=== PATIENT | male | born 1970 | race Caucasian/White ===

== ENCOUNTER 2017-05-09 18:57 | Inpatient (IN) | payer BC, OTHER ==
[~2017-05-09] VITALS: Ht 177.8 cm; Wt 87.1 kg
[~2017-05-09 18:57] MED LIST: BUDE10.2 INH; Gabapentin PO; HYDR-3895 PO; Metronidazole PO; TRAZ-144 PO; VARE1TAB21 PO
[2017-05-09 22:30] VITALS: BP 128/98
[2017-05-09] MEDS ORDERED: ACETAMINOPHEN 325 MG TABLET PO PRN (22:30)
[2017-05-09] MEDS ORDERED: ONDANSETRON ODT 4 MG TAB.RAPDIS SL PRN (22:30)
[2017-05-09] MEDS ORDERED: MAG HYDROX/AL HYDROX/SIMETH 30 ML LIQUID UDC PO PRN (22:30)
[2017-05-09] MEDS ORDERED: IBUPROFEN 600 MG TABLET PO PRN (22:30)
[2017-05-09] MEDS ORDERED: MIRALAX 17 GM POWD.PACK PO PRN (22:30)
[2017-05-09] MEDS ORDERED: DICYCLOMINE HCL 20 MG TABLET PO PRN (22:30)
[2017-05-09] MEDS ORDERED: MAGNESIUM HYDROXIDE 30 ML LIQUID UDC PO PRN (22:30)
[2017-05-09] MEDS ORDERED: BUPRENORPHINE HCL 2 MG TAB.SUBL SL PRN (22:30)
[2017-05-09] MEDS ORDERED: DOCUSATE SODIUM 250 MG CAPSULE PO PRN (22:30)
[2017-05-09] MEDS ORDERED: LOPERAMIDE HCL 2 MG CAPSULE PO PRN (22:30)
[2017-05-09] MEDS ORDERED: ONDANSETRON 4 MG/2 ML VIAL IM PRN (22:30)
[2017-05-09] MEDS ORDERED: IBUPROFEN 600 MG TABLET ONE (22:51)
[2017-05-09] MEDS ORDERED: LORAZEPAM 1 MG TABLET ONE (23:05)
[2017-05-09 23:13] LABS: *AMPHETAMINE, URINE NEGATIVE (NEGATIVE); *BARBITURATE, URINE NEGATIVE (NEGATIVE); *CANNABINOID, URINE NEGATIVE (NEGATIVE); *COCCAINE, URINE NEGATIVE (NEGATIVE); *OPIATE, URINE POSITIVE (NEGATIVE); *PHENCYCLIDINE SCREEN,URINE NEGATIVE (NEGATIVE)
[2017-05-09] MEDS ORDERED: LORAZEPAM 1 MG TABLET PO ONE (23:30)
[2017-05-10] VITALS: BP 133/87
[2017-05-10 04:00] VITALS: BP 137/80
[2017-05-10] MEDS: BUPRENORPHINE HCL 2 MG TAB.SUBL SL SCH ×4 (08:07→21:30)
[2017-05-10 08:16] VITALS: BP 137/88
[2017-05-10] MEDS ORDERED: TUBERCULIN,PURIF.PROT.DERIV. 5 TU/0.1 ML TEST ID ONE (09:00)
[2017-05-10] MEDS: METHOCARBAMOL 750 MG TABLET PO PRN (09:25)
[2017-05-10] MEDS: LORAZEPAM 1 MG TABLET PO PRN ×2 (09:25→14:33)
[2017-05-10] MEDS: CLONIDINE HCL 0.1 MG TABLET PO PRN (09:37)
[2017-05-10] MEDS ORDERED: INFLUENZA VACCINE 2017-2018 0.5 ML DISP.SYRIN IM ONE (10:00)
[2017-05-10] MEDS ORDERED: PNEUMOCOCCAL 23-VAL P-SAC VAC 0.5 ML VIAL IM ONE (10:00)
[2017-05-10] MEDS ORDERED: LORAZEPAM 2 MG/1 ML VIAL IM ONE (12:00)
[2017-05-10 12:45] VITALS: BP 119/74
[2017-05-10 12:59] LABS: ALANINE AMINOTRANSFERASE 22 U/L (16-63); ALKALINE PHOSPHATASE 107 U/L (50-136); ASPARTATE AMINOTRANSFERASE 29 U/L (15-37); BILIRUBIN,TOTAL 1.2 mg/dL (0.2-1.0); CARBON DIOXIDE 22 mmol/L (21-32); CHLORIDE 101 mmol/L (98-107); CREATININE 0.8 mg/dL (0.6-1.3); GLUCOSE 114 mg/dL (74-106); POTASSIUM 3.3 mmol/L (3.5-5.1); TOTAL PROTEIN, SERUM 8.4 g/dL (6.4-8.2); UREA NITROGEN, BLOOD 7 mg/dL (7-18)
[2017-05-10 13:00] LABS: BASOPHILS # (AUTO) 0.1 K/uL (0.0-8.0); BASOPHILS % (AUTO) 0.8 % (0.0-2.0); EOSINOPHILS # (AUTO) 0.1 K/uL (0.0-0.7); EOSINOPHILS % (AUTO) 0.6 % (0.0-7.0); HEMOGLOBIN 15.9 g/dL (12.5-16.3); LYMPHOCYTES # (AUTO) 1.4 K/uL (20.0-40.0); LYMPHOCYTES % (AUTO) 10.2 % (20.5-51.5); MEAN CORPUSCULAR HEMOGLOBIN 29.2 uug (23.8-33.4); MEAN CORPUSCULAR HGB CONC 35 g/dL (32.5-36.3); MEAN CORPUSCULAR VOLUME 84.3 fL (73.0-96.2); MONOCYTES # (AUTO) 0.7 K/uL (2.0-10.0); MONOCYTES % (AUTO) 5.6 % (0.0-11.0); NEUTROPHILS % (AUTO) 82.8 % (38.5-71.5); PLATELET COUNT (AUTO) 295 K/uL (152-348); RED BLOOD CELL COUNT(AUTO) 5.45 MIL/uL (4.06-5.63); WHITE BLOOD COUNT (AUTO) 13.3 K/uL (3.6-10.2)
[2017-05-10 13:03] LABS: ETHANOL < 3 MG/DL (0-0)
[2017-05-10] MEDS ORDERED: IV NS 1000 ML 1,000 ML IV PRN (13:15)
[2017-05-10] MEDS: GABAPENTIN 300 MG CAPSULE PO SCH ×2 (14:33→21:30)
[2017-05-10] MEDS ORDERED: POTASSIUM CHLORIDE 20 MEQ TAB.PRT.SR PO ONE (17:00)
[2017-05-10 17:04] VITALS: BP 122/74
[2017-05-10 20:00] VITALS: BP 109/68
[2017-05-10] MEDS: TRAZODONE 50 MG TABLET PO PRN (23:01)
[2017-05-11] MEDS: HYDROXYZINE PAMOATE 25 MG CAPSULE PO PRN ×2 (00:37→21:19)
[2017-05-11] MEDS: METHOCARBAMOL 750 MG TABLET PO PRN (00:38)
[2017-05-11] MEDS: CLONIDINE HCL 0.1 MG TABLET PO PRN ×2 (00:39→12:56)
[2017-05-11 08:00] VITALS: BP 138/88
[2017-05-11 08:06] LABS: HEPATITIS B SURFACE AG Negative (Negative)
[2017-05-11 08:19] LABS: BASOPHILS # (AUTO) 0.6 K/uL (0.0-8.0); BASOPHILS % (AUTO) 4.4 % (0.0-2.0); EOSINOPHILS # (AUTO) 0.2 K/uL (0.0-0.7); EOSINOPHILS % (AUTO) 1.4 % (0.0-7.0); HEMATOCRIT 51.8 % (40-50); HEMOGLOBIN 17.4 G/DL (14.0-18.0); LYMPHOCYTES # (AUTO) 3.4 K/UL (0.8-4.8); LYMPHOCYTES % (AUTO) 24.2 % (20.5-51.5); MEAN CORPUSCULAR HEMOGLOBIN 28.4 UUG (27.0-31.0); MEAN CORPUSCULAR HGB CONC 34 g/dL (32.0-37.0); MEAN CORPUSCULAR VOLUME 84.7 FL (82.0-92.0); MONOCYTES # (AUTO) 1.2 K/UL (0.1-1.30); MONOCYTES % (AUTO) 8.9 % (0.0-11.0); NEUTROPHILS # (AUTO) 8.5 K/UL (1.8-8.9); NEUTROPHILS % (AUTO) 61.1 % (38.5-71.5); PLATELET COUNT (AUTO) 325 K/UL (150-450); RED BLOOD CELL COUNT(AUTO) 6.12 MIL/UL (4.7-6.1); WHITE BLOOD COUNT (AUTO) 13.9 K/UL (4.0-11.2)
[2017-05-11 08:27] LABS: CREATININE 0.8 mg/dL (0.6-1.3); MAGNESIUM 2.3 mg/dL (1.8-2.4); POTASSIUM 3.5 mmol/L (3.5-5.1)
[2017-05-11] MEDS: BUPRENORPHINE HCL 2 MG TAB.SUBL SL SCH ×2 (08:32→14:25)
[2017-05-11] MEDS: GABAPENTIN 300 MG CAPSULE PO SCH (08:32)
[2017-05-11] MEDS ORDERED: INFLUENZA VACCINE 2017-2018 0.5 ML DISP.SYRIN IM ONE (10:00)
[2017-05-11] MEDS ORDERED: PNEUMOCOCCAL 23-VAL P-SAC VAC 0.5 ML VIAL IM ONE (10:00)
[2017-05-11 12:00] VITALS: BP 148/103
[2017-05-11] MEDS: GABAPENTIN 400 MG CAPSULE PO SCH ×2 (14:25→21:19)
[2017-05-11 16:00] VITALS: BP 130/77
[2017-05-11] MEDS: LOPERAMIDE HCL 2 MG CAPSULE PO PRN (18:59)
[2017-05-11 20:00] VITALS: BP 130/94
[2017-05-11] MEDS: CLONIDINE HCL 0.1 MG TABLET PO SCH (21:19)
[2017-05-11] MEDS: TRAZODONE 50 MG TABLET PO PRN (21:20)
[2017-05-11] MEDS: BACLOFEN 10 MG TABLET PO SCH (21:20)
[2017-05-12 08:00] VITALS: BP 133/90
[2017-05-12] MEDS: CLONIDINE HCL 0.1 MG TABLET PO SCH ×2 (08:52→21:22)
[2017-05-12] MEDS: GABAPENTIN 400 MG CAPSULE PO SCH ×2 (08:52→14:03)
[2017-05-12] MEDS: BACLOFEN 10 MG TABLET PO SCH ×2 (08:52→21:24)
[2017-05-12] MEDS ORDERED: BUPRENORPHINE HCL 2 MG TAB.SUBL SL SCH (09:00)
[2017-05-12 12:00] VITALS: BP 136/94
[2017-05-12] MEDS: BUPRENORPHINE HCL 2 MG TAB.SUBL SL SCH ×2 (14:06→21:24)
[2017-05-12 16:00] VITALS: BP 135/95
[2017-05-12] MEDS ORDERED: TRAZODONE 50 MG TABLET PO PRN (17:15)
[2017-05-12] MEDS: LOPERAMIDE HCL 2 MG CAPSULE PO PRN (19:39)
[2017-05-12 20:00] VITALS: BP 143/98
[2017-05-12] MEDS: GABAPENTIN 300 MG CAPSULE PO SCH (21:22)
[2017-05-12] MEDS: HYDROXYZINE PAMOATE 25 MG CAPSULE PO PRN (21:22)
[2017-05-12] MEDS: TRAZODONE 100 MG TABLET PO PRN (21:22)
[2017-05-13 05:00] VITALS: BP 129/81
[2017-05-13 08:00] VITALS: BP 138/92
[2017-05-13] MEDS: GABAPENTIN 300 MG CAPSULE PO SCH ×3 (08:24→21:49)
[2017-05-13] MEDS: BUPRENORPHINE HCL 2 MG TAB.SUBL SL SCH ×3 (08:24→21:49)
[2017-05-13] MEDS: BACLOFEN 10 MG TABLET PO SCH ×3 (08:24→21:49)
[2017-05-13 12:00] VITALS: BP 127/90
[2017-05-13 16:00] VITALS: BP 138/87
[2017-05-13 20:00] VITALS: BP 140/90
[2017-05-13] MEDS: PAROXETINE HCL 10 MG TABLET PO SCH (21:49)
[2017-05-13] MEDS: TRAZODONE 100 MG TABLET PO PRN (21:49)
[2017-05-13] MEDS: CLONIDINE HCL 0.1 MG TABLET PO SCH (21:50)
[2017-05-14 08:00] VITALS: BP 150/101
[2017-05-14] MEDS ORDERED: BUPRENORPHINE HCL 2 MG TAB.SUBL SL SCH (09:00)
[2017-05-14] MEDS: BACLOFEN 10 MG TABLET PO SCH ×3 (09:20→21:24)
[2017-05-14] MEDS: GABAPENTIN 300 MG CAPSULE PO SCH ×3 (09:21→21:24)
[2017-05-14 12:45] VITALS: BP 147/94
[2017-05-14 16:45] VITALS: BP 141/95
[2017-05-14 20:00] VITALS: BP 154/95
[2017-05-14] MEDS: PAROXETINE HCL 10 MG TABLET PO SCH (21:24)
[2017-05-14] MEDS: TRAZODONE 100 MG TABLET PO PRN (21:24)
[2017-05-14] MEDS: CLONIDINE HCL 0.1 MG TABLET PO PRN (21:25)
[2017-05-14] MEDS ORDERED: DICY20TA28 PO (21:58)
[2017-05-14] MEDS ORDERED: TRAZ-147 PO (21:58)
[2017-05-14] MEDS ORDERED: GABA-534 PO (21:58)
[2017-05-14] MEDS ORDERED: PARO10TA4 PO (21:58)
[2017-05-14] MEDS ORDERED: METH-406 PO (21:58)
[2017-05-14] MEDS ORDERED: HYDR-3895 PO (21:58)
[2017-05-14] MEDS ORDERED: IBUP-1955 PO (21:58)
[2017-05-14] MEDS ORDERED: CLON0.1T14 PO (21:58)
[2017-05-15 08:00] VITALS: BP 152/98
[2017-05-15 08:30] VITALS: BP 138/88
[2017-05-15] MEDS: GABAPENTIN 300 MG CAPSULE PO SCH (08:40)
[2017-05-15 08:41] VITALS: BP 162/92
[2017-05-15] MEDS: BACLOFEN 10 MG TABLET PO SCH (08:41)
[2017-05-15] MEDS ORDERED: CLONIDINE HCL 0.1 MG TABLET PO SCH ×2 (09:00→09:15)
== END 2017-05-15 09:40 | disposition other institution (70) | DRG 895 ==
LOC: SRC 21:35
PROVIDERS: ADMIT Internal Medicine; ATTEND Internal Medicine
DX: F11.23 Opioid dependence with withdrawal (principal); J84.10 Pulmonary fibrosis, unspecified; I15.9 Secondary hypertension, unspecified; E83.42 Hypomagnesemia; B18.2 Chronic viral hepatitis C; R19.7 Diarrhea, unspecified; F41.9 Anxiety disorder, unspecified; E87.6 Hypokalemia; G47.00 Insomnia, unspecified; D72.823 Leukemoid reaction; M19.90 Unspecified osteoarthritis, unspecified site; R76.11 Nonspecific reaction to tuberculin skin test without active tuberculosis; F17.210 Nicotine dependence, cigarettes, uncomplicated; Z81.8 Family history of other mental and behavioral disorders; Z82.49 Family history of ischemic heart disease and other diseases of the circulatory system; Z83.3 Family history of diabetes mellitus; Z80.9 Family history of malignant neoplasm, unspecified; Z87.442 Personal history of urinary calculi
CPT/HCPCS: 36415; 70030-TC; 71010; 80307; 80361; 83735; 85025; 86580; 86592; 86705; 86803; 87340; 87806; 90686; 90732; G0480; J2060; J2405; J7030